=== PATIENT | female | born 1990 | race Caucasian/White ===

== ENCOUNTER → 2017-11-13 22:37 | Emergency (ER) | payer OTHER ==
--- NOTE | 2017-11-14 01:47 | ED ---
Throat Pain/Nasal Congestion - HPI Summary HPI Summary: 27-year-old male presents with dental pain for the past day. She started Clindamycin today. Taking Tylenol or ibuprofen for her symptoms. States he noticed some pain into her jaw today. No fever. No swelling noted. No pain with eye movement. No difficulty swelling. No chest pain or shortness breath. No medical conditions. she has an appointment on friday. she broke the two teeth months ago. - History of Current Complaint Chief Complaint: EDDentalPain Time Seen by Provider: 11/14/17 01:19 - Allergies/Home Medications Allergies/Adverse Reactions: Allergies Allergy/AdvReac Type Severity Reaction Status Date / Time MS Sulfa Antibiotics Allergy Intermediate Hives Verified 11/13/17 23:08 [Sulfa Antibiotics] MS Penicillins [Penicillins] Allergy Unknown Verified 11/13/17 23:08 Reaction Details PMH/Surg Hx/FS Hx/Imm Hx Endocrine/Hematology History: Denies: Hx Anticoagulant Therapy Cardiovascular History: Denies: Hx Pacemaker/ICD Psychiatric History: Reports: Hx Anxiety - not currently in treatment, Hx Depression - not in treatment Denies: Hx Panic Disorder Infectious Disease History: No Infectious Disease History: Denies: Traveled Outside the [place] in Last 30 Days - Family History Known Family History: Positive: Hypertension - Social History Alcohol Use: None Alcohol Amount: pt. denied Substance Use Type: Reports: None Substance Use Comment - Amount & Last Used: Oxycodone 10 mg. qid for back pain/ sciatica Smoking Status (MU): Light Every Day Tobacco Smoker Type: Cigarettes Amount Used/How Often: 5 cigs/day Have You Smoked in the Last Year: Yes Review of Systems Negative: Fever Positive: Dental Pain Negative: Chest Pain Negative: Shortness Of Breath All Other Systems Reviewed And Are Negative: Yes Physical Exam Triage Information Reviewed: Yes Vital Signs On Initial Exam: Initial Vitals Temp Pulse Resp BP Pulse Ox 99.7 F 94 16 198/122 99 11/13/17 23:00 11/13/17 23:00 11/13/17 23:00 11/13/17 23:00 11/13/17 23:00 Vital Signs Reviewed: Yes Appearance: Positive: Well-Appearing Skin: Positive: Warm, Dry Head/Face: Positive: Normal Head/Face Inspection Eyes: Positive: Normal, EOMI, CHIOMA, Conjunctiva Clear ENT: Positive: Pharynx normal, TMs normal Dental: Positive: Percussion Tenderness @ - 19, 13, Gross Decay/Caries @. Negative: Abscess @ Neck: Positive: Supple, Nontender, No Lymphadenopathy Respiratory/Lung Sounds: Positive: Clear to Auscultation, Breath Sounds Present Cardiovascular: Positive: Normal, RRR Musculoskeletal: Positive: Normal Neurological: Positive: Normal Psychiatric: Positive: Normal Diagnostics - Vital Signs Vital Signs Temp Pulse Resp BP Pulse Ox 11/14/17 00:35 98.4 F 76 16 148/93 100 11/13/17 23:00 99.7 F 94 16 198/122 99 - Laboratory Lab Statement: Any lab studies that have been ordered have been reviewed, and results considered in the medical decision making process. EENT Course/Dx - Course Course Of Treatment: 27-year-old male presents with dental pain for the past day. She started Clindamycin today. Taking Tylenol or ibuprofen for her symptoms. States he noticed some pain into her jaw today. No fever. No swelling noted. No pain with eye movement. No difficulty swelling. No chest pain or shortness breath. No medical conditions. she has an appointment on friday. on exam has tenderness 13, 19 with broken teeth. no abscess seen. told to continue clindamycin. patient undertand and agrees with plan. - Differential Diagnoses Differential Diagnoses: Dental Abscess, Dental Caries, Fractured Tooth - Diagnoses Provider Diagnoses: Dental infection Discharge - Sign-Out/Discharge Documenting (check all that apply): Patient Departure - Discharge Plan Condition: Good Disposition: HOME Patient Education Materials: Toothache (ED) Referrals: Cherise MCGOWAN,Omid Acevedo [Primary Care Provider] - Additional Instructions: continue antibiotics Take Tylenol or ibuprofen for every 6 hours Avoid hard, crunchy food until seen by dentist Return to ED if develop fever, shortness of breath, pain with eye movement or swelling around eye or any new or worsening symptoms - Billing Disposition and Condition Condition: GOOD Disposition: Home Images - Images Dental: 1 - pain 2 - pain
[2017-11-14 02:14] VITALS: BP 134/71
== END | disposition home or self-care (01) ==
LOC: ED 22:37
DX: K04.7 Periapical abscess without sinus (principal); F17.210 Nicotine dependence, cigarettes, uncomplicated; Z88.0 Allergy status to penicillin; Z88.2 Allergy status to sulfonamides
CPT/HCPCS: 99281

== ENCOUNTER 2019-03-03 18:00 | Emergency (ER) | payer OTHER ==
--- NOTE | 2019-03-03 18:59 | ED ---
HPI Diabetic - HPI Summary HPI Summary: Patient with history of 28 weeks complains of elevated BGL of 410 at home today. No history of diabetes, positive history of gestational diabetes with prior . . Complains of ongoing symptoms of nausea, weakness , bilateral hips hurting throughout . Last evaluated by physical OB/ [facility] 2 weeks ago. Normal ultrasound 2 months ago. Denies fever, cough , sore throat, CP, SOB, diarrhea, abdominal pain, change in urine, change in BM , vaginal symptoms. Medical history is none. - History Of Current Complaint Chief Complaint: EDDiabeticProb Time Seen by Provider: 03/03/19 18:57 Hx Obtained From: Patient Onset/Duration: Sudden Onset Severity Currently: None Character: Alert Aggravating: Nothing Related History: Gestational Diabetes - Allergies/Home Medications Allergies/Adverse Reactions: Allergies Allergy/AdvReac Type Severity Reaction Status Date / Time Penicillins Allergy Unknown Verified 03/03/19 18:14 Reaction Details Sulfa (Sulfonamide Allergy Hives Verified 03/03/19 18:14 Antibiotics) Home Medications: Home Medications Gabapentin 1 cap PO BEDTIME 03/03/19 [History Confirmed 03/03/19] PMH/Surg Hx/FS Hx/Imm Hx Endocrine/Hematology History: Denies: Hx Anticoagulant Therapy Cardiovascular History: Denies: Hx Pacemaker/ICD History: Denies: Hx Dialysis Sensory History: Denies: Hx Eye Prosthesis Opthamlomology History: Denies: Hx Legally Blind EENT History: Denies: Hx Deafness Neurological History: Denies: Hx Dementia Psychiatric History: Reports: Hx Anxiety - not currently in treatment, Hx Depression - not in treatment Denies: Hx Panic Disorder Infectious Disease History: No Infectious Disease History: Denies: Traveled Outside the [place] in Last 30 Days - Family History Known Family History: Positive: Hypertension - Social History Alcohol Use: None Alcohol Amount: pt. denied Substance Use Type: Reports: None Substance Use Comment - Amount & Last Used: Oxycodone 10 mg. qid for back pain/ sciatica Smoking Status (MU): Light Every Day Tobacco Smoker Type: Cigarettes Amount Used/How Often: 5 cigs/day Have You Smoked in the Last Year: Yes Review of Systems Constitutional: Negative Eyes: Negative ENT: Negative Cardiovascular: Negative Respiratory: Negative Positive: Nausea Genitourinary: Negative Musculoskeletal: Negative Skin: Negative Positive: Weakness Psychological: Normal All Other Systems Reviewed And Are Negative: Yes Physical Exam Triage Information Reviewed: Yes Vital Signs On Initial Exam: Initial Vitals Temp Pulse Resp BP Pulse Ox 98.5 F 116 20 154/104 97 03/03/19 18:11 03/03/19 18:11 03/03/19 18:11 03/03/19 18:11 03/03/19 18:11 Vital Signs Reviewed: Yes Appearance: Positive: Well-Appearing Skin: Positive: Warm Head/Face: Positive: Normal Head/Face Inspection Eyes: Positive: Normal Neck: Positive: Supple Respiratory/Lung Sounds: Positive: Clear to Auscultation Cardiovascular: Positive: Normal Abdomen Description: Positive: Nontender Musculoskeletal: Positive: Normal Neurological: Positive: Normal Psychiatric: Positive: Normal AVPU Assessment: Alert - Linda Coma Scale Best Eye Response: 4 - Spontaneous Best Motor Response: 6 - Obeys Commands Best Verbal Response: 5 - Oriented Coma Scale Total: 15 Diagnostics - Vital Signs Vital Signs Temp Pulse Resp BP Pulse Ox 03/03/19 18:11 98.5 F 116 20 154/104 97 - Laboratory Result Diagrams: 03/03/19 19:13 03/03/19 19:13 Lab Statement: Any lab studies that have been ordered have been reviewed, and results considered in the medical decision making process. Diabetic Course/Dx - Course Course Of Treatment: Patient with history of 28 weeks complains of elevated BGL of 410 at home today. No history of diabetes, positive history of gestational diabetes with prior . . Complains of ongoing symptoms of nausea, weakness, bilateral hips hurting throughout . Last evaluated by physical [facility] 2 weeks ago. Normal ultrasound 2 months ago. Denies fever, cough, sore throat, CP, SOB, diarrhea, abdominal pain, change in urine, change in BM, vaginal symptoms. Medical history is none. Elevated blood pressure in the SBP 150s to 160s. 3 manual readings by 2 different staff from 130 to 138 SBP. Mildly tachycardic. Vital signs otherwise within normal limits.. Glucose 109. History of normal OGT this past January. Magnesium 1.7. 400 mg magnesium by mouth administered. Labs otherwise unremarkable. Urine has no ketones or proteins. heart tones within normal limits. Discussed patient with attending Dr. Anderson and OB application development liaison Dr. Desir who both approved discharge home. Patient has follow-up this coming Friday with OB. - Diagnoses Provider Diagnoses: , Hypomagnesemia Discharge ED - Sign-Out/Discharge Documenting (check all that apply): Patient Departure - Discharge Plan Condition: Stable Disposition: HOME Patient Education Materials: (ED) Referrals: Cherise MCGOWAN,Omid Acevedo [Primary Care Provider] - Additional Instructions: Follow-up with your [facility]. Return to the ED for any new or worsening symptoms. - Billing Disposition and Condition Condition: STABLE Disposition: Home - Attestation Statements Provider Attestation: I was available for consult. This patient was seen by the JOYCE. The patient was not presented to, seen by, or examined by me. Luiz Bowser MD
[2019-03-03] MEDS ORDERED: NS 0.9% 1000 ML** 1,000 ML IV ONE (19:00)
[2019-03-03 19:19] LABS: ABS Basophils 0.1 10^3/ul (0-0.2); ABS Eosinophils 0.2 10^3/ul (0-0.6); ABS Lymphocytes 2.9 10^3/ul (1.0-4.8); ABS Monocytes 0.6 10^3/ul (0-0.8); ABS Neutrophils 5.3 10^3/ul (1.5-7.7); Eosinophil % 2.1 %; Hematocrit 36 % (35-47); Hemoglobin 12.6 g/dL (12.0-16.0); Mean Corpuscular HGB Conc 35 g/dL (31-36); Mean Corpuscular Hemoglobin 30 pg (27-31); Mean Corpuscular Volume 86 fL (80-97); Mean Platelet Volume 7.3 fL (7.4-10.4); Platelet Count 301 10^3/uL (150-450); Red Blood Count 4.21 10^6 /uL (3.70-4.87); Red Cell Distribution Width 14 % (10-15)
[2019-03-03 19:37] LABS: Albumin 3.4 g/dL (3.2-5.2); Albumin/Globulin Ratio 1.1 (1-3); BUN/Creatinine Ratio 17.5 (8-20); C Reactive Protein 5.41 mg/L (<8.01); Calcium 9.1 mg/dL (8.6-10.3); EGFR African American 149.7 (>60); EGFR Non-African American 123.7 (>60); Globulin 3.1 g/dL (2-4); Magnesium 1.7 mg/dL (1.9-2.7); Potassium 3.6 mmol/L (3.5-5.0); Total Bilirubin 0.2 mg/dL (0.2-1.0); Total Protein 6.5 g/dL (6.4-8.9)
[2019-03-03 19:59] LABS: TSH (Thyroid Stimulating Horm) 0.67 mcIU/mL (0.34-5.60)
[2019-03-03] MEDS ORDERED: Magnesium Sulfate 2 GM IV* 2 GM/50 ML BAG IVPB ONE (20:45)
[2019-03-03 20:49] LABS: Urine Appearance Cloudy; Urine Bilirubin Negative (Negative); Urine Blood Negative (Negative); Urine Color Yellow; Urine Glucose Negative (Negative); Urine Ketones Negative (Negative); Urine Nitrite Negative (Negative); Urine Protein Negative (Negative); Urine Specific Gravity 1.018 (1.010-1.030); Urine Urobilinogen Negative (Negative)
[2019-03-03] MEDS ORDERED: Magnesium Oxide TAB* 400 MG PO ONE (21:41)
[2019-03-03 22:40] VITALS: BP 116/72
== END 2019-03-03 22:39 | disposition home or self-care (01) ==
LOC: ED 18:00
DX: O26.892 Other specified pregnancy related conditions, second trimester (principal); E83.42 Hypomagnesemia; O99.332 Smoking (tobacco) complicating pregnancy, second trimester; F17.210 Nicotine dependence, cigarettes, uncomplicated; Z3A.28 28 weeks gestation of pregnancy; Z88.0 Allergy status to penicillin; Z88.2 Allergy status to sulfonamides; Z79.899 Other long term (current) drug therapy
CPT/HCPCS: 36415; 80053; 81003; 83735; 84443; 85025; 86140; 96360; 99283

== ENCOUNTER 2019-05-15 01:16 | Inpatient (IN) | payer OTHER ==
[2019-05-15 01:57] LABS: Urine Appearance Cloudy; Urine Bilirubin Negative (Negative); Urine Blood Negative (Negative); Urine Color Amber; Urine Glucose Negative (Negative); Urine Ketones 2+ (Negative); Urine Nitrite Negative (Negative); Urine Protein 1+(30 mg/dL) (Negative); Urine Specific Gravity 1.026 (1.010-1.030); Urine Urobilinogen Positive (Negative)
[2019-05-15 02:06] LABS: Urine Bacteria 1+ (Absent); Urine Red Blood Cell Absent (Absent); Urine Squamous Epithelial Cell Present (Absent); Urine White Blood Cell Trace(0-5/hpf) (Absent)
[2019-05-15 02:10] LABS: Urine Benzodiazepine Screen None Detected (None Detect); Urine Opiates Screen Presumptive Positive (None Detect)
[2019-05-15] MEDS ORDERED: Buffered Lidocaine 1% SYRIN* 1 ML/SYRINGE INTRADERM ONE (02:32)
[2019-05-15] MEDS ORDERED: Lactated Ringers 1000 ML Bag* 1,000 ML IV ONE ×2 (02:32→08:42)
--- NOTE | 2019-05-15 02:54 | HP ---
General Information - Reason for Visit Labor - General Information Maternal Age: 29 Grav: 8 Para: 3 SAB: 4 IEA: 0 Estimated Due Date: 04/08/14 Determined By: Early Ultrasound Gestational Age in Weeks/Days: 37w3d Maternal Blood Type and Rh: A Positive - Results this Serology/RPR Result: Non-Reactive Rubella Result: Immune HBsAg Result: Negative HIV Result: Negative GBS Culture Result: Negative Past Medical History Delivery History: Hx Complicated Vaginal Delivery - Hx of Pre-term delivery and demise, with reynaldo's syndrome, hx of x 2 Pertinent Past Medical History: See Records - CHTN, GDMA, Morbid Obesity, Depression/Anxiety, chronic back pain - OPIOD Dependency Pertinent Past Surgical History: None Pertinent Family History: See Records - Antepartal Records Antepartal Records: Reviewed, Complicated by: - CHTN, Poor Obstetric Hx/PTD, Morbid Obesity, GDMA, OPIOD DEPENDENCE related to chronic back pain Review of Systems Constitutional: Uncomfortable CV Complaint: No Respiratory: Shortness of Breath: No Gastrointestinal: No Nausea/Vomiting, Normal Bowel Movement Genitourinary: No Dysuria, No Bleeding, No Leaking Fluid Musculoskeletal: No Complaint, No Epigastric Pain, Contractions Neurological: No Headache, No Visual Changes Movement: Decreased Exam Allergies/Adverse Reactions: Allergies Penicillins Allergy (Verified 05/15/19 01:42) Unknown Reaction Details Sulfa (Sulfonamide Antibiotics) Allergy (Verified 05/15/19 01:42) Hives T97.2 Pulse 112 RR 20 BP 148/93 O2 Sat 97% Lab Values - Entire Visit: Laboratory Tests 05/15/19 05/15/19 05/15/19 01:35 01:35 01:54 POC Glucose (mg/dL) 131 H Urine Color Carmen Urine Appearance Cloudy Urine pH 5.0 Ur Specific [place] 1.026 Urine Protein 1+(30 mg/dl) A Urine Ketones 2+ A Urine Blood Negative Urine Nitrate Negative Urine Bilirubin Negative Urine Urobilinogen Positive A Ur Leukocyte Esterase Negative Urine WBC (Auto) Trace(0-5/hpf) Urine RBC (Auto) Absent Ur Squamous Epith Cells Present A Urine Bacteria 1+ A Hyaline Casts Present A Urine Glucose Negative Urine Opiates Screen Presumptive positive A Ur Barbiturates Screen None detected Ur Phencyclidine Scrn None detected Ur Amphetamines Screen None detected U Benzodiazepines Scrn None detected Urine Cocaine Screen None detected U Cannabinoids Screen None detected - Measurements Height: 5 ft 4 in Weight: 305 lb Weight in lbs: [phone] Body Mass Index (BMI): 52.3 Pre- Weight: 260 lb Weight Gained This : 45 lbs and 0 ozs - Exam Breast: Breast Exam Deferred CVA: No CVA Tenderness Extremities: No Edema Heart: Normal Rhythm/Heart Sounds HEENT: No Significant Findings Lungs: Clear Bilaterally Rectal: Rectal Exam Deferred Reflexes: DTR 2+ Thyroid: No Thyromegaly - Abdominal Exam Abdomen Exam: Non-Tender - Ultrasound/Biophysical Profile Ultrasound Status: Not Done - Vertex on exam Targeted Exam Findings Estimated Weight: 6#8oz Cervical Exam: 5cm Effacement: 60% Station: -2 Presenting Part: Vertex Membrane Status: Intact Bleeding/Discharge: None EFM Findings - External Monitor Findings Baseline Heart Rate: 155 External Monitor Findings: Accelerations Present, No Pattern of Variable or Late Decelerations, Variability Moderate, Baseline Stable Contractions: Regular, Moderate, 45-90 Seconds Assessment/Plan - Assessment 29 y/o at 37w3d in labor complicated by: - CHTN - GDMA1 - Morbid Obesity - Opiod Dependency related to chronic back pain - Hx of PTL - Smoker - Depression RH+/Rubella Immune GBS Negative - Obstetrical Risk Factors Obstetrical Risk Factors: Obesity, Chronic Hypertension, Gestational Diabetes, Psychosocial Issues - Plan Plan: Observe, Admit - Anticipate Vaginal Delivery Plan Comment: Admit to L&D and expectantly manage - Continuous EFM - CHTN - BP's stable in mild range, will collect PrE lab evaluation now - GDMA1 - Will collect FSBG values while in labor - Morbid Obesity - Will use sequential compression stockings while in bed for DVT ppx - Opiod Dependency related to chronic back pain - Hx of PTL - Smoker - Depression - Date/Time of Admission Date of Admission: 05/15/19 Time of Admission: 03:00
[2019-05-15] MEDS ORDERED: Lactated Ringers 1000 ML Bag* 1,000 ML IV SCH ×2 (03:00→16:00)
[2019-05-15 03:07] LABS: ABS Eosinophils 0.1 10^3/ul (0-0.6); ABS Lymphocytes 2.1 10^3/ul (1.0-4.8); ABS Monocytes 0.5 10^3/ul (0-0.8); ABS Neutrophils 5.6 10^3/ul (1.5-7.7); Eosinophil % 0.8 %; Hematocrit 39 % (35-47); Hemoglobin 13.2 g/dL (12.0-16.0); Lymphocyte % 25.5 %; Mean Corpuscular HGB Conc 34 g/dL (31-36); Mean Corpuscular Hemoglobin 29 pg (27-31); Mean Corpuscular Volume 85 fL (80-97); Mean Platelet Volume 7.5 fL (7.4-10.4); Nucleated Red Blood Cells % 0.1; Platelet Count 407 10^3/uL (150-450); Red Blood Count 4.54 10^6 /uL (3.70-4.87); Red Cell Distribution Width 14 % (10-15); White Blood Count 8.3 10^3/uL (3.5-10.8)
[2019-05-15 03:23] LABS: Albumin 3.2 g/dL (3.2-5.2); Albumin/Globulin Ratio 1.1 (1-3); BUN/Creatinine Ratio 9.4 (8-20); Calcium 9.1 mg/dL (8.6-10.3); EGFR African American 162.8 (>60); EGFR Non-African American 134.6 (>60); Globulin 2.8 g/dL (2-4); Potassium 4.1 mmol/L (3.5-5.0); Total Bilirubin 0.3 mg/dL (0.2-1.0); Uric Acid 4.8 mg/dL (2.3-6.6)
--- NOTE | 2019-05-15 07:24 | PN ---
Progress Note - Progress Note Date of Service: 05/15/19 Note: Pt expectantly managed since admission. BP's have been in mild range, pt remains asymptomatic. Last FSBG was 87. Contractions spaced out while pt was sleeping, but picking back up now. Re-examined and cervix found to be 6cm/70%/-2 with bulging bag of water with contraction; AROM'd with clear fluid with contraction. FHT is reactive with stable baseline of 150, moderate variability, no decels. Will continue to expectantly manage. Anticipate vaginal delivery. DO HONG Feldman
[2019-05-15] MEDS: Cyclobenzaprine TAB* 10 MG PO PRN (07:59)
[2019-05-15] MEDS: oxyCODONE TAB* 5 MG TAB PO PRN ×3 (07:59→22:08)
[2019-05-15] MEDS ORDERED: OBEPIDURAL* 250 ML EPIDURAL ONE (08:07)
[2019-05-15] MEDS ORDERED: Sodium Citrate/Citric Acid* 15 ML UDC PO PRN (08:42)
[2019-05-15] MEDS ORDERED: Phenylephrine 40 MCG/ML SYRINGE IV PUSH PRN ×2 (08:42)
[2019-05-15] MEDS ORDERED: OBEPIDURAL* 250 ML EPIDURAL SCH (09:00)
[2019-05-15] MEDS: Lactated Ringers 1000 ML Bag* 1,000 ML IV SCH ×2 (10:40→12:57)
[2019-05-15] MEDS ORDERED: Oxytocin in LR* 20 UNITS/1,000 ML BAG IVPB SCH (13:00)
[2019-05-15] MEDS ORDERED: Acetaminophen TAB* 325 MG PO PRN (15:51)
[2019-05-15] MEDS ORDERED: Glycerin ADULT SUPP PR PRN (15:51)
[2019-05-15] MEDS ORDERED: Dibucaine 1% 28.35 GM TUBE PR PRN (15:51)
[2019-05-15] MEDS ORDERED: Witch Hazel PAD* JAR TOPICAL PRN (15:51)
[2019-05-15] MEDS ORDERED: Ibuprofen TAB* 600 MG PO PRN (15:51)
--- NOTE | 2019-05-15 15:59 | PROCNOTE ---
[facility] OB: Delivery Note - Delivery A Date of : 05/15/19 Time of : 14:02 [place] Sex: Female Weight at : 8 lb 11 oz Score 1 Minute: 9 Score 5 Minutes: 9 Gestational Age in Weeks and Days at Delivery: 37 Weeks and 3 Days Delivery Method: Spontaneous Vaginal Labor: Spontaneous Did Patient attempt ?: N/A, No Previous Amniotic Fluid: Clear Estimated Blood Loss: 200 Anesthesia/Analgesia: CEI for Labor Delivered By: Cindi Interiano - Nursery Level of Nursery: Regular/Bedside - Perineum Perineal Injury: Periurethral Laceration Perineal Injury Comment: minor tears, not repaired - Events Delivery Events of Note: Pitocin During Labor - Additional Delivery Notes Additional Delivery Notes: Pt presented in early labor, underwent augmentation with AROM and progressed to 6-7cm, received an epidural and then pitocin was started. She was fully dilated less than an hour later and pushed 10min to deliver the 's head in SAVANA position over intact perineum followed quickly by the shoulders and the rest of the body. The baby was placed on mom's abdomen. The cord was clamped x2 and cut. The placenta delivered with gentle cord traction and fundal massage and appeared intact. Hemostatic periurethral lacs were not repeaired. Fundus was found to be firm with good hemostasis.
[2019-05-15] MEDS ORDERED: Simethicone TAB* 80 MG TAB.CHEW PO SCH (17:30)
[2019-05-15] MEDS: Nicotine PATCH 21 MG/24 HR* PATCH TRANSDERM SCH (17:30)
[2019-05-15] MEDS: Gabapentin CAP(*) 300 MG PO SCH (21:04)
[2019-05-16] MEDS: oxyCODONE TAB* 5 MG TAB PO PRN ×4 (03:15→20:33)
[2019-05-16 06:35] LABS: ABS Basophils 0.1 10^3/ul (0-0.2); ABS Eosinophils 0.2 10^3/ul (0-0.6); ABS Lymphocytes 3.3 10^3/ul (1.0-4.8); ABS Monocytes 1.1 10^3/ul (0-0.8); ABS Neutrophils 7.3 10^3/ul (1.5-7.7); Eosinophil % 1.4 %; Hematocrit 36 % (35-47); Hemoglobin 11.9 g/dL (12.0-16.0); Lymphocyte % 27.9 %; Mean Corpuscular HGB Conc 34 g/dL (31-36); Mean Corpuscular Hemoglobin 29 pg (27-31); Mean Corpuscular Volume 85 fL (80-97); Mean Platelet Volume 7.2 fL (7.4-10.4); Platelet Count 320 10^3/uL (150-450); Red Blood Count 4.18 10^6 /uL (3.70-4.87); Red Cell Distribution Width 15 % (10-15)
[2019-05-16] MEDS: Docusate CAP* 100 MG PO SCH ×4 (07:00→21:00)
[2019-05-16] MEDS ORDERED: Ferrous Gluconate TAB* 324 MG TAB PO SCH (09:00)
[2019-05-16] MEDS: Cyclobenzaprine TAB* 10 MG PO PRN (20:32)
[2019-05-16] MEDS: Gabapentin CAP(*) 300 MG PO SCH (20:32)
[2019-05-16] MEDS ORDERED: Nicotine Patch Removal NOTE PATCH OFF SCH (21:00)
[2019-05-17] MEDS: oxyCODONE TAB* 5 MG TAB PO PRN ×3 (04:08→12:21)
[2019-05-17] MEDS: Nicotine PATCH 21 MG/24 HR* PATCH TRANSDERM SCH ×2 (04:17→11:54)
[2019-05-17] MEDS: Docusate CAP* 100 MG PO SCH (08:13)
[2019-05-17 08:27] VITALS: BP 144/94
[2019-05-17] MEDS: Cyclobenzaprine TAB* 10 MG PO PRN (08:29)
== END 2019-05-17 12:30 | disposition home or self-care (01) | DRG 560 ==
LOC: MCHOBOUT 01:16 → MCHOB 02:26
PROVIDERS: ADMIT Obstetrics & Gynecology; ATTEND Obstetrics & Gynecology
PROC: 10E0XZZ Delivery of Products of Conception, External Approach (ICD-10-PCS; principal; 2019-05-15)
PROC: 10907ZC Drainage of Amniotic Fluid, Therapeutic from Products of Conception, Via Natural or Artificial Opening (ICD-10-PCS; 2019-05-15)
DX: O60.23X0 Term delivery with preterm labor, third trimester, not applicable or unspecified (principal); O10.02 Pre-existing essential hypertension complicating childbirth; Z37.0 Single live birth; O99.324 Drug use complicating childbirth; F11.20 Opioid dependence, uncomplicated; O99.214 Obesity complicating childbirth; E66.01 Morbid (severe) obesity due to excess calories; O99.334 Smoking (tobacco) complicating childbirth; O99.344 Other mental disorders complicating childbirth; F32.9 Major depressive disorder, single episode, unspecified; O71.82 Other specified trauma to perineum and vulva; O24.429 Gestational diabetes mellitus in childbirth, unspecified control; Z3A.37 37 weeks gestation of pregnancy
CPT/HCPCS: 36415; 80053; 80307; 81003; 81015; 84550; 85025; 86850; 86900; 86901; 87086; A9270-GY; G0480

== ENCOUNTER 2022-03-13 07:49 | Inpatient (IN) ==
[2022-03-13] MEDS ORDERED: Buffered Lidocaine 1% SYRIN 1 ml ONE (08:56)
[2022-03-13] MEDS ORDERED: Buffered Lidocaine 1% SYRIN 1 ml INTRADERM ONE (09:47)
[2022-03-13] MEDS ORDERED: Nalbuphine 10 MG/ML 1 ML VIAL IV PRN (09:47)
[2022-03-13] MEDS ORDERED: Lactated Ringers 1000 ml BAG 1,000 ML IV ONE ×2 (09:47→14:50)
[2022-03-13] MEDS ORDERED: Promethazine INJ(RESTRICTED) 25 MG/ML 1 ml VIAL IV PRN (09:47)
[2022-03-13] MEDS ORDERED: Lactated Ringers 1000 ml BAG 1,000 ML IV SCH ×3 (10:00→20:00)
[2022-03-13 10:12] LABS: ABS Eosinophils 0.4 10^3/ul (0-0.6); ABS Lymphocytes 3.1 10^3/ul (1.0-4.8); ABS Monocytes 0.8 10^3/ul (0-0.8); ABS Neutrophils 6.9 10^3/ul (1.5-7.7); Eosinophil % 3.9 %; Hematocrit 37 % (35-47); Lymphocyte % 27.4 %; Mean Corpuscular HGB Conc 33 g/dL (31-36); Mean Corpuscular Hemoglobin 28 pg (27-31); Mean Corpuscular Volume 86 fL (80-97); Mean Platelet Volume 7.3 fL (7.4-10.4); Platelet Count 433 10^3/uL (150-450); Red Blood Count 4.24 10^6 /uL (3.70-4.87); Red Cell Distribution Width 14 % (10-15); White Blood Count 11.3 10^3/uL (3.5-10.8)
[2022-03-13 10:26] LABS: Urine Benzodiazepine Screen None Detected (None Detect); Urine Cannabinoids Screen None Detected (None Detect); Urine Opiates Screen Presumptive Positive (None Detect)
[2022-03-13] MEDS ORDERED: Oxytocin in LR 20,000 MILLI.UNIT/1,000 ML BAG IV SCH ×2 (11:00→19:15)
[2022-03-13] MEDS ORDERED: Lidocaine/Epinephrin 1.5%/200 5 ML AMP INJ ONE (13:45)
[2022-03-13] MEDS ORDERED: OBEPIDURAL (200 ML) 200 ML EPIDURAL ONE (13:45)
[2022-03-13] MEDS ORDERED: Sodium Citrate/Citric Acid LIQ 15 ML UDC PO PRN (14:50)
[2022-03-13] MEDS ORDERED: Phenylephrine 40 mcg/mL 10mL (400mcg) SYRINGE IV PUSH PRN ×2 (14:50)
[2022-03-13] MEDS ORDERED: OBEPIDURAL (200 ML) 200 ML EPIDURAL SCH (15:00)
[2022-03-13 15:25] LABS: Urine Appearance Cloudy; Urine Bilirubin Negative (Negative); Urine Blood Negative (Negative); Urine Color Yellow; Urine Glucose Negative (Negative); Urine Ketones Negative (Negative); Urine Nitrite Negative (Negative); Urine Protein Negative (Negative); Urine Specific Gravity 1.014 (1.002-1.030); Urine Urobilinogen Negative (Negative)
[2022-03-13] MEDS ORDERED: Glycerin ADULT 2.4 gm SUPP PR PRN (19:02)
[2022-03-13] MEDS ORDERED: Witch Hazel PAD JAR TOPICAL PRN (19:02)
[2022-03-13] MEDS ORDERED: Dibucaine 1% OINT 28.35 GM TUBE PR PRN (19:02)
[2022-03-14 07:01] LABS: ABS Basophils 0.1 10^3/ul (0-0.2); ABS Eosinophils 0.5 10^3/ul (0-0.6); ABS Lymphocytes 3.6 10^3/ul (1.0-4.8); ABS Monocytes 0.9 10^3/ul (0-0.8); ABS Neutrophils 9.5 10^3/ul (1.5-7.7); Eosinophil % 3.4 %; Hematocrit 32 % (35-47); Hemoglobin 10.8 g/dL (12.0-16.0); Lymphocyte % 24.7 %; Mean Corpuscular HGB Conc 33 g/dL (31-36); Mean Corpuscular Hemoglobin 29 pg (27-31); Mean Corpuscular Volume 86 fL (80-97); Mean Platelet Volume 6.8 fL (7.4-10.4); Platelet Count 343 10^3/uL (150-450); Red Blood Count 3.75 10^6 /uL (3.70-4.87); Red Cell Distribution Width 14 % (10-15); White Blood Count 14.8 10^3/uL (3.5-10.8)
[2022-03-15 09:29] VITALS: BP 139/87
== END 2022-03-15 11:32 | disposition home or self-care (01) | DRG 560 ==
LOC: MCHOBOUT 07:49 → MCHOB 10:09
PROVIDERS: ADMIT Obstetrics & Gynecology; ATTEND Obstetrics & Gynecology